=== PATIENT | female | born 1965 | race Caucasian/White ===

== ENCOUNTER 2016-06-16 10:43 | Emergency (ER) | payer OTHER, SELFPAY ==
[2016-06-16] MEDS ORDERED: Ondansetron 4 MG Tab.DIS PO ONE (11:22)
[2016-06-16] MEDS ORDERED: LORazepam 2 MG/ML MDV IM ONE (11:23)
--- NOTE | 2016-06-16 11:31 | EDM.PDOC ---
ED HPI - General Chief Complaint: Gastrointestinal Problem Stated Complaint: GASTROINTESTINAL ISSUES Time Seen by Provider: 06/16/16 11:25 Source of Information: Reports: Patient History Limitations: Reports: No limitations - History of Present Illness INITIAL COMMENTS - FREE TEXT/NARRATIVE: patient reports with complaints of worsening abdominal discomfort. She states started 2 weeks ago, became significantly worse this morning. Symptoms not precipitated by any known event. she has decreased dietary intake and reports last normal BM was nearly a week ago. She did just recently see her PCP this past saturday, was told she has low platelets and was told to f/u with hematology, but reports was not having significant abdominal discomfort at that time. She has known history of fatty liver disease, does report regular use of alcohol, although has been advised to quit. She was recently started on lexapro this past saturday for anxiety and depression. She reports nausea, but no vomiting, just dry heaves. She denies any abdominal 'pain', just reports a discomfort and fullness to her abdomen. She denies any chest pain or shortness of breath. She feels chilled and feels as though her heart is racing. Last alcohol use was last night. Other than past history of a csection, she has no past history of abdominal surgery. She denies any alleviating or provoking factors or radiation of abdominal discomfort. She does report feeling that her ' heart is pounding', which typically happens, and resolves with alcohol use. Symptom Onset Date: 06/02/16 Location, : Reports: abdomen Quality: Reports: ache Improves with: Reports: None Worsens with: Reports: None - Related Data Allergies/ADRs: Allergies Allergy/AdvReac Type Severity Reaction Status Date / Time cephalexin Allergy Hives Verified 11/23/15 13:34 Sulfa (Sulfonamide Allergy Hives Verified 11/23/15 13:34 Antibiotics) doxycycline AdvReac Nausea and Verified 11/24/15 07:53 Vomiting Home Meds: Home Meds Multivitamin [Multivitamins] 1 tab PO DAILY 02/16/15 [History] Ondansetron [Zofran ODT] 4 mg PO Q6H PRN #10 tab.dis 02/16/15 [Rx] Ranitidine HCl 75 mg PO DAILY PRN 02/16/15 [History] Hydrocodone/Acetaminophen [Hydrocodon-Acetaminophen 5-325] 1 tab PO ASDIRECTED PRN 11/23/15 [History] Potassium Gluconate [Potassium] 550 mg PO DAILY 06/16/16 [History] Past Medical History Gastrointestinal History: Reports: GERD Other Gastrointestinal History: "fatty liver" Other Genitourinary History: "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" Musculoskeletal History: Reports: Back pain, chronic Psychiatric History: Reports: Anxiety Endocrine/Metabolic History: Reports: None - Past Surgical History HEENT Surgical History: Reports: Adenoidectomy, Tonsillectomy Female Surgical History: Reports: section Social & Family History - Tobacco Use Smoking Status *Q: Current Every Day Smoker Years of Tobacco use: 37 Packs/Tins Daily: 0.5 Second Hand Smoke Exposure: Yes - Caffeine Use Caffeine Use: Reports: Coffee - Alcohol Use Days Per Week of Alcohol Use: 7 Number of Drinks Per Day: 7 Total Drinks Per Week: 49 - Recreational Drug Use Recreational Drug Use: No Drug Use in Last 12 Months: No ED ROS GENERAL - Review of Systems Review Of Systems: See Below Constitutional: Reports: chills, decreased appetite. Denies: fever Respiratory: Denies: shortness of breath (patient denies any shortness of breath , but states she has increase abdominal discomfort with deep inspirations) Cardiovascular: Denies: Chest pain, Edema, Lightheadedness, Palpitations GI/Abdominal: Reports: Abdominal pain (reports she has increased abdominal pressure, diffuse. ), Constipation (reports she has had passing of small amounts of stool, but last 'good' BM was over a weeka go), Decreased appetite, Nausea. Denies: Diarrhea, Vomiting (reports dry heaving) : Denies: dysuria, flank pain, frequency, hematuria Neurological: Denies: dizziness, headache Psychiatric: Reports: Anxiety (patient was just started on lexapro this past saturday), Depression ED EXAM - Physical Exam Exam: See Below Exam Limited By: No limitations General Appearance: alert, WD/WN, anxious, mild distress. No: no apparent distress (patient appears mildly anxious and uncomfortable) Respiratory/Chest: no respiratory distress, lungs clear, normal breath sounds, chest non-tender. No: rales, rhonchi, wheezing Cardiovascular: normal peripheral pulses, regular rate, rhythm, no murmur GI/Abdominal: soft, non tender, no distention. No: normal bowel sounds ( decreased bowel sounds in all four quadrants), guarding, rebound Neurological: alert, oriented, normal cognition Psychiatric: normal affect, anxious Skin Exam: Warm, Dry, Normal color Course - Vital Signs Text/Narrative:: 1214 Patient reports despite zofran and ativan, she feels about the same. She feels as though her heart is racing, denies any chest pain. Will obtain and EKG to evaluate. She is resting comfortably, lab work is pending. 1310 Discussed findings with patient, labwork including WBC is normal, platelets are low at 135k, RBC, HG/HCT are normal. CMP shows slightly low K+, otherwise normal , CRP, Amylase normal, UA normal. Discussed recommendations for bowel clean out at home, vs options for enema in clinic, patient prefers to go home with recommendations for bowel clean out. Last Recorded V/S: Last Vital Signs Temp 98.4 F 06/16/16 10:54 Pulse 94 06/16/16 10:54 Resp 20 06/16/16 10:54 BP 159/92 H 06/16/16 10:54 Pulse Ox 98 06/16/16 10:54 - Orders/Labs/Meds Orders: Active Orders 24 hr Category Date Time Status EKG 12 Lead [EKG Documentation Completion] [RC] Care 06/16/16 12:18 Active ASDIRECTED Abdomen 2V AP Flat Upright [CR] Stat Exams 06/16/16 11:20 Taken Labs: Laboratory Tests 06/16/16 06/16/16 06/16/16 Range/Units 11:45 11:51 11:51 WBC 6.28 (3.98-10.04) K/mm3 RBC 4.50 (3.98-5.22) M/mm3 Hgb 14.9 (11.2-15.7) gm/L Hct 43.4 (34.1-44.9) % MCV 96.4 H (79.4-94.8) fl MCH 33.1 H (25.6-32.2) pg MCHC 34.3 (32.2-35.5) g/dl RDW Std Deviation 44.0 (36.4-46.3) fL Plt Count 135 L (182-369) K/mm3 MPV 11.3 (9.4-12.3) fl Neut % (Auto) 65.0 (34.0-71.1) % Lymph % (Auto) 24.0 (19.3-51.7) % [place] % (Auto) 10.0 (4.7-12.5) % Eos % (Auto) 0.3 L (0.7-5.8) Baso % (Auto) 0.5 (0.1-1.2) % Neut # 4.08 (1.56-6.13) K/mm3 Lymph # 1.51 (1.18-3.74) K/mm3 [place] # 0.63 H (0.24-0.36) K/mm3 Eos # 0.02 L (0.04-0.36) K/mm3 Baso # 0.03 (0.01-0.08) K/mm3 Sodium 144 (136-145) mEq/L Potassium 3.4 L (3.5-5.1) mEq/L Chloride 105 (98-107) mEq/L Carbon Dioxide 24 (21-32) mEq/L Anion Gap 18.4 H (5-15) BUN 3 L (7-18) mg/dL Creatinine 0.7 (0.55-1.02) mg/dL Est Cr Clr Drug Dosing 81.18 mL/min Estimated GFR (MDRD) > 60 (>60) mL/min BUN/Creatinine Ratio 4.3 L (14-18) Glucose 117 H (74-106) mg/dL Calcium 8.9 (8.5-10.1) mg/dL Total Bilirubin 0.9 (0.2-1.0) mg/dL AST 133 H (15-37) U/L ALT 64 H (14-59) U/L Alkaline Phosphatase 128 H (46-116) U/L C-Reactive Protein < 0.2 (<1.0) mg/dL Total Protein 7.9 (6.4-8.2) g/dl Albumin 3.7 (3.4-5.0) g/dl Globulin 4.2 gm/dL Albumin/Globulin Ratio 0.9 L (1-2) Amylase 96 (25-115) U/L Urine Color Yellow (Yellow) Urine Appearance Clear (Clear) Urine pH 6.0 (5.0-8.0) Ur Specific [place] 1.025 (1.005-1.030) Urine Protein Negative (Negative) Urine Glucose (UA) Negative (Negative) Urine Ketones Trace H (Negative) Urine Occult Blood Negative (Negative) Urine Nitrite Negative (Negative) Urine Bilirubin Negative (Negative) Urine Urobilinogen 1.0 (0.2-1.0) Ur Leukocyte Esterase Negative (Negative) Urine RBC Not seen (0-5) /hpf Urine WBC 0-5 (0-5) /hpf Ur Epithelial Cells 0-5 (0-5) /hpf Urine Bacteria Few (FEW) /hpf Urine Mucus Many H (FEW) /hpf Meds: Medications Discontinued Medications Generic Name Dose Route Start Last Admin Trade Name Francisco PRN Reason Stop Dose Admin Lorazepam 1 mg 06/16/16 11:23 06/16/16 11:45 Ativan IM 06/16/16 11:24 1 mg ONETIME ONE Administration Ondansetron HCl 8 mg 06/16/16 11:22 06/16/16 11:44 Zofran Odt PO 06/16/16 11:23 8 mg ONETIME ONE Administration Departure - Departure Time of Disposition: 13:12 Disposition: Home, Self-Care 01 Condition: good Clinical Impression: Constipation, Anxiety Instructions: Constipation, Adult Referrals: Mone Pearl NP [Primary Care Provider] - Forms: ED Department Discharge Additional Instructions: patient presents with nausea, vomiting, and overall not 'feeling well'. Symptoms have been present x 2 weeks, she denies any provoking or alleviating factors. She does drink alcohol regularly, has been advised to quit, but states she is not sure if she is read. She was recently diagnosed with low platelets, with recommendation and pending f/u with hematology. She has not had a regular BM in nearly a week. She does reports sensation of her heart racing, which is relieved by alcohol consumption. Her last drink was last night. Lab work reveals normal WBC at 6.28, RBC 4.5, Hg 14.9, Hct 43.4, platelets at 135k. Her Potassium is slightly low at 3.4, CRP normal, Amylase 96, AST 133, ALT 64, Alk Phos 128. UA normal without evidence of acute UTI Abdominal xray does not show any evidence of obstruction or air fluid levels. mild to moderate amount of stool present in colon. Radiology report is pending. EKG shows normal sinus rhythm Patient was given zofran, and ativan in ED. Did give recommendations for bowel clean out, including magnesium citrate, miralax, and daily stool softener. Did recommend she follow a bland diet, increase water intake, avoid alcohol. She did just start lexapro, so advised new medication could possibly be contributing to nausea, but typically this resolves after 3-5 days of use. She does have a prescription for zofran, advised to continue as directed PRN. Did caution that medication can worsen constipation, so use only as needed. Did recommend f/u with her PCP if not improving, or certainly return to ED as needed. - My Orders Last 24 Hours: My Active Orders 06/16/16 11:20 Abdomen 2V AP Flat Upright [CR] Stat 06/16/16 12:18 EKG 12 Lead [EKG Documentation Completion] [RC] ASDIRECTED - Assessment/Plan Last 24 Hours: My Active Orders 06/16/16 11:20 Abdomen 2V AP Flat Upright [CR] Stat 06/16/16 12:18 EKG 12 Lead [EKG Documentation Completion] [RC] ASDIRECTED
[2016-06-16 14:40] VITALS: BP 144/74
--- NOTE | 2016-06-18 07:37 | CR ---
Abdomen: Supine and upright views of the abdomen were obtained. Comparison: No previous abdominal plain film, previous abdominal CT of 02/12/11 is available. Mild scoliosis is seen. Bowel gas pattern is normal. Several calcifications are seen within the pelvis which are likely due to phleboliths. No free air is seen. Impression: 1. Nothing acute is seen on two-view abdominal x-ray. Diagnostic code #2
== END 2016-06-16 13:45 | disposition home or self-care (01) ==
LOC: JD.ED 10:43
DX: K59.00 Constipation, unspecified (principal); F41.9 Anxiety disorder, unspecified; F17.210 Nicotine dependence, cigarettes, uncomplicated; Z98.890 Other specified postprocedural states; Z79.899 Other long term (current) drug therapy; Z88.1 Allergy status to other antibiotic agents; Z88.2 Allergy status to sulfonamides
CPT/HCPCS: 36415; 74020; 80053; 81001; 82150; 85025; 86140; 93005; 96372; 99284; A9270; J2060

== ENCOUNTER 2016-11-27 06:27 | Day surgery (SDC) | payer OTHER, SELFPAY ==
--- NOTE | 2016-11-21 12:03 | HP ---
DATE OF ADMISSION: 11/27/2016 HISTORY OF PRESENT ILLNESS: This is the second orthopedic outpatient admission for surgery for this 51-year- old female who is being admitted for removal of hardware from right ankle. The patient had suffered a right ankle fracture and surgery on 11/24/2015. She had been doing quite well over this past year, but was having mechanical pain in and around the hardware fixation sites on both the inside and outside portions of her ankle. She was seen in the Orthopedic Clinic in discussion of removal of hardware. We will go ahead and schedule her to have the hardware removed. The procedure has been outlined to her along with the postoperative recovery phase, and the necessity for limited weightbearing, and she understands that and has consented to surgery. ALLERGIES: To sulfa and cephalexin, developed a rash. CURRENT MEDICATIONS: Ranitidine and she does take a potassium supplement. PAST MEDICAL HISTORY: She notes anxiety. There was a questionable history of blood pressure. She notes no medical changes since her last surgical procedure dating back to 11/2015. PAST SURGICAL HISTORY: Positive, 11/24/2015, right ankle ORIF, had no anesthesia complications; although, she does state she had some nausea and vomiting. Bleeding history is negative. Blood clot history is negative. SOCIAL HISTORY: The patient is a [id number]-per-day smoker. She drinks 6 to 8 beers per day. PHYSICAL EXAMINATION: GENERAL: Today reveals a well-developed and well-nourished 51-year-old female in mild distress. HEAD, EYES, EARS, NOSE, AND THROAT: Normocephalic. NECK: Supple. CHEST: Clear. COR: Regular rate. ABDOMEN: Soft. : Intact. MUSCULOSKELETAL: Examination of the right ankle reveals healed surgical scars on both the medial and lateral malleolus. She has positive tenderness over the screw fixation medial and pin fixation lateral. ASSESSMENT: Status post ORIF of right ankle with hardware. PLAN: Plan is for the patient to undergo removal of hardware and surgery with local and sedation. SON /[id number] HERRERA
[~2016-11-27 06:27] MED LIST: Lactated Ringers 1,000 ML IV SCH; Lidocaine 1%/Sod Bicarbonate in NS 8.4% 1 ML Syringe PRN; Sodium Chloride 0.9% 10 ML Syringe FLUSH PRN
[2016-11-27] MEDS ORDERED: Midazolam 1 MG/ML 2 ML SDV ONE (07:09)
[2016-11-27] MEDS ORDERED: Propofol 200 MG/20 ML SDV ONE (07:09)
[2016-11-27] MEDS ORDERED: fentaNYL 100 MCG/2 ML SDV ONE (07:09)
[2016-11-27] MEDS ORDERED: Lidocaine 1% 30 ML SDV ONE (07:21)
[2016-11-27] MEDS ORDERED: Iodine/Sodium Iodide 2% Tincture 30 ML Bottle ONE (07:21)
--- NOTE | 2016-11-27 07:24 | PCM.PREANE ---
Preanesthetic Assessment - Anesthesia/Transfusion/Family Hx Anesthesia History: Prior Anesthesia Without Reaction Family History of Anesthesia Reaction: No Type of Transfusion Reactions: Reports: Unknown - Review of Systems General: No Symptoms Pulmonary: Other (smoker 1/2 per day) Cardiovascular: Palpitations Gastrointestinal: Other (controlled with meds, flares with spicy foods) Neurological: No Symptoms Other: Reports: Anxiety (ETOH abuse 8beers plus a day, plus liquor as well) - Physical Assessment NPO Status Date: 11/26/16 NPO Status Time: 22:30 Pulse: 94 O2 Sat by Pulse Oximetry: 96 Respiratory Rate: 16 Blood Pressure: 132/65 Temperature: 36.6 C Height: 1.63 m Weight: 60.781 kg ASA Class: 2 Mental Status: Alert & Oriented x3 Airway Class: Mallampati = 2 Dentition: Reports: Normal Dentition Thyro-Mental Finger Breadths: 3 Mouth Opening Finger Breadths: 3 ROM/Head Extension: Full Lungs: Clear to Auscultation, Normal Respiratory Effort Cardiovascular: Regular Rate, Regular Rhythm, Other (EKG show NSR) - Allergies Allergies/Adverse Reactions: Allergies Allergy/AdvReac Type Severity Reaction Status Date / Time cephalexin Allergy Hives Verified 11/26/16 16:07 Sulfa (Sulfonamide Allergy Hives Verified 11/26/16 16:07 Antibiotics) doxycycline AdvReac Nausea and Verified 11/26/16 16:07 Vomiting - Blood Blood Available: No Product(s) Available: None - Anesthesia Plan Pre-Op Medication Ordered: None - Acknowledgements Anesthesia Type Planned: MAC Pt an Appropriate Candidate for the Planned Anesthesia: Yes Alternatives and Risks of Anesthesia Discussed w Pt/Guardian: Yes Pt/Guardian Understands and Agrees with Anesthesia Plan: Yes PreAnesthesia Questionnaire Cardiovascular History: Reports: None Respiratory History: Reports: None Gastrointestinal History: Reports: GERD Other Gastrointestinal History: "fatty liver" Other Genitourinary History: "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" AVID EDITOR History: Reports: None Musculoskeletal History: Reports: Back Pain, Chronic Neurological History: Reports: None Psychiatric History: Reports: Anxiety, Depression Endocrine/Metabolic History: Reports: None Hematologic History: Reports: None Immunologic History: Reports: None Oncologic (Cancer) History: Reports: None Dermatologic History: Reports: None - Past Surgical History Head Surgeries/Procedures: Reports: None HEENT Surgical History: Reports: Adenoidectomy, Tonsillectomy Cardiovascular Surgical History: Reports: None Respiratory Surgical History: Reports: None Female Surgical History: Reports: Section Neurological Surgical History: Reports: None Oncologic Surgical History: Reports: None Dermatological Surgical History: Reports: None - SUBSTANCE USE Smoking Status *Q: Current Every Day Smoker Tobacco Use Within Last Twelve Months: Cigarettes Second Hand Smoke Exposure: Yes Days Per Week of Alcohol Use: 7 Number of Drinks Per Day: 7 Total Drinks Per Week: 49 Recreational Drug Use History: No - HOME MEDS Home Medications: Home Meds Potassium Gluconate 180 mg PO DAILY 11/26/16 [History] Ranitidine [Zantac] 150 mg PO DAILY 11/26/16 [History] - CURRENT (IN HOUSE) MEDS Current Meds: Current Medications Lactated Ringer's (Ringers, Lactated) 1,000 mls @ 125 mls/hr IV ASDIRECTED KENNEDY Stop: 11/27/16 23:00 Lidocaine/Sodium Bicarbonate (Buffered Lidocaine 1% In Ns 8.4%) 0.25 ml .XX ONETIME PRN PRN Reason: Prior to IV Start Stop: 11/27/16 18:00 Sodium Chloride (Saline Flush) 10 ml FLUSH ASDIRECTED PRN PRN Reason: Keep Vein Open Stop: 11/27/16 18:00 Discontinued Medications Fentanyl (Sublimaze) Confirm Administered Dose 100 mcg .ROUTE .STK-MED ONE Stop: 11/27/16 07:10 Midazolam HCl (Versed 1 Mg/Ml) Confirm Administered Dose 2 mg .ROUTE .STK-MED ONE Stop: 11/27/16 07:10 Propofol (Diprivan 20 Ml) Confirm Administered Dose 400 mg .ROUTE .STK-MED ONE Stop: 11/27/16 07:10
[2016-11-27] MEDS ORDERED: Ondansetron 4 MG/2 ML SDV IVPUSH PRN ×2 (07:30→07:43)
[2016-11-27] MEDS ORDERED: fentaNYL 100 MCG/2 ML SDV IVPUSH PRN (07:30)
[2016-11-27] MEDS ORDERED: Ketorolac 15 MG/ML SDV IVPUSH PRN (07:43)
[2016-11-27] MEDS ORDERED: Acetaminophen/oxyCODONE 325-5 MG Tab PO PRN (07:43)
[2016-11-27] MEDS ORDERED: Clindamycin Phosphate 900 MG in Dextrose 5% in Water 100 ML IV ONE ×2 (08:15)
[2016-11-27] MEDS ORDERED: Ondansetron 4 MG/2 ML SDV ONE (08:22)
--- NOTE | 2016-11-27 09:12 | PCM48HPAN ---
Post Anesthesia Note - EVALUATION WITHIN 48HRS OF ANESTHETIC Vital Signs in Normal Range: Yes Patient Participated in Evaluation: Yes Respiratory Function Stable: Yes Airway Patent: Yes Cardiovascular Function Stable: Yes Hydration Status Stable: Yes Pain Control Satisfactory: Yes Nausea and Vomiting Control Satisfactory: Yes Mental Status Recovered: Yes
--- NOTE | 2016-11-27 10:35 | CR ---
Right ankle: Seven fluoroscopic spot views were obtained of the right ankle utilizing C-arm device. Comparison: Previous right ankle study of 06/06/16. Findings: Previous intramedullary venecia within the distal fibula is not seen on current exam. Study also shows removal of screws within the medial malleolus. Fluoroscopy time is given as 8.3 seconds. Impression: 1. Study showing removal of previous hardware within the right ankle. Diagnostic code #2
[2016-11-27 11:08] VITALS: BP 103/65
--- NOTE | 2016-11-27 13:54 | OR ---
DATE OF OPERATION: 11/27/2016 SURGEON: Rick Brooks MD PREOPERATIVE DIAGNOSIS: Status post bimalleolar fracture, right ankle, with Jerez venecia and screw fixation. POSTOPERATIVE DIAGNOSIS: Status post bimalleolar fracture, right ankle, with Jerez venecia and screw fixation. ANESTHESIA: Sedation with local 1% lidocaine. OPERATION PERFORMED: 1. Open removal of Jerez venecia, right fibula of the ankle. 2. Open removal of 2 cortical cannulated screws of medial malleolus right ankle. DESCRIPTION OF PROCEDURE: The patient was taken to the operative room in supine position and was placed under a sedation anesthesia. After sedation, the operation proceeded with prepping and draping of the right lower extremity by standard technique. After prepping and draping, the operation then proceeded with palpation for identification of the Jerez venecia that was in the tip of the fibula laterally. This was identified and fluoroscopy was used for the case. A stab incision of approximately 2 cm in length was placed over the tip of the Jerez venecia area. This was dissected down to deep tissues down to where the Jerez venecia was imbedded in the fibula. This was loosened and removed in a retrograde fashion. The deep tissue was then thoroughly irrigated. The soft tissues were closed with 3-0 Vicryl, and then the skin was closed with 4-0 Prolene. The operation then proceeded to the medial malleolus area, where the 2 screws were identified by fluoroscopy. Then, incisions were placed over the heads of both cannulated screws. Incisions were made with 11 blade. The incision was carried down to the screw level. This bluntly dissected tissues away from the head of the screw. Both screws were removed in a retrograde fashion. Both incisions were thoroughly irrigated. Then, the operation proceeded with closure of the deep tissues with 3-0 Vicryl and skin with 4-0 Prolene. The patient was placed in standard dressings and a soft dressing protection. The fluoroscopy was brought in at the completion the procedure. X-rays were taken, and these were found to be satisfactory. The patient tolerated this procedure well and left the operating room in a stable condition to room for recovery. ESTIMATED BLOOD LOSS: MMODAL /[id number]
== END 2016-11-27 10:45 | disposition home or self-care (01) ==
LOC: JD.SDS 06:27
PROVIDERS: ATTEND Specialist
DX: T84.84XA Pain due to internal orthopedic prosthetic devices, implants and grafts, initial encounter (principal); F41.9 Anxiety disorder, unspecified; F17.210 Nicotine dependence, cigarettes, uncomplicated; K21.9 Gastro-esophageal reflux disease without esophagitis; F32.9 Major depressive disorder, single episode, unspecified; Z88.1 Allergy status to other antibiotic agents; Z88.2 Allergy status to sulfonamides; Z79.899 Other long term (current) drug therapy; Z98.890 Other specified postprocedural states; Z90.89 Acquired absence of other organs
CPT/HCPCS: 20680; 76000; A9270; C1769; J2250; J2405; J3010; J7060; J7120; 01480; J2704

== ENCOUNTER 2016-12-10 12:02 | Emergency (ER) | payer OTHER, SELFPAY ==
[2016-12-10 12:15] VITALS: BP 181/100
[2016-12-10] MEDS ORDERED: Sodium Chloride 0.9% 10 ML Syringe FLUSH PRN (12:44)
[2016-12-10] MEDS ORDERED: Sodium Chloride 0.9% 1,000 ML IV ONE (12:44)
[2016-12-10] MEDS ORDERED: Ondansetron 4 MG/2 ML SDV IVPUSH ONE (12:44)
--- NOTE | 2016-12-10 12:54 | EDM.PDOC ---
ED HPI GENERAL MEDICAL PROBLEM - General Chief Complaint: General Stated Complaint: EAR PAIN/LETHARGY/NO APPETITE Time Seen by Provider: 12/10/16 12:33 Source of Information: Reports: Patient History Limitations: Reports: No Limitations - History of Present Illness INITIAL COMMENTS - FREE TEXT/NARRATIVE: Patient is a 51-year-old female who presents to the ED complaining of nausea, low energy, poor appetite, right ear discomfort, generalized abdominal discomfort, dysuria, anxiety, palpitations, excessive sleeping, and intermittent chest pain with anxiety. Patient states November 27 she had pins removed from the right ankle. Since then patient has been experiencing these above symptoms. Patient states she's been more anxious as of recent. She has anxiety-like symptoms at night and throughout the day. She a alcoholic and drinks alcohol every day. In addition she utilizes marijuana on intermittent basis. She has a pressure-like sensation to her stomach with the sensation she has to have a bowel movement. She has intermittent pain with urination. She is concerned that she may have low potassium. She's had this in the past. She has taken Lexapro and Zoloft in the past for anxiety/depression but discontinued due to irritation to her stomach. She denies any acid reflux. States her abdomen is queasy. Currently does not want help for alcoholism but notes she has to stop. States she's been changing the dressing to the right ankle every night. Last night there was no signs of infection present. Pain is minimal. She does not see a provider unrelated basis. She does not have insurance. Currently patient denies any chest pain, short of breath, dizziness, palpitations, or any additional complaints. - Related Data Allergies Allergy/AdvReac Type Severity Reaction Status Date / Time cephalexin Allergy Hives Verified 11/26/16 16:07 Sulfa (Sulfonamide Allergy Hives Verified 11/26/16 16:07 Antibiotics) doxycycline AdvReac Nausea and Verified 11/26/16 16:07 Vomiting Home Meds: Home Meds Potassium Gluconate 180 mg PO DAILY 11/26/16 [History] Ranitidine [Zantac] 150 mg PO DAILY PRN 11/26/16 [History] Magnesium Oxide 400 mg PO BID #60 tablet 12/10/16 [Rx] Ondansetron [Zofran ODT] 4 mg PO Q6H PRN #20 tab.dis 12/10/16 [Rx] Propranolol HCl [Inderal LA] 60 mg PO QAM #15 cap.sa.24h 12/10/16 [Rx] chlordiazePOXIDE [Librium] 25 mg PO ASDIRECTED #18 cap 12/10/16 [Rx] Past Medical History Cardiovascular History: Reports: None Respiratory History: Reports: None Gastrointestinal History: Reports: GERD Other Gastrointestinal History: "fatty liver" Other Genitourinary History: "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" 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: 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 Musculoskeletal History: Reports: Back Pain, Chronic Neurological History: Reports: None Psychiatric History: Reports: Anxiety, Depression Endocrine/Metabolic History: Reports: None Hematologic History: Reports: None Immunologic History: Reports: None Oncologic (Cancer) History: Reports: None Dermatologic History: Reports: None - Past Surgical History Head Surgeries/Procedures: Reports: None HEENT Surgical History: Reports: Adenoidectomy, Tonsillectomy Cardiovascular Surgical History: Reports: None Respiratory Surgical History: Reports: None Female Surgical History: Reports: Section Neurological Surgical History: Reports: None Oncologic Surgical History: Reports: None Dermatological Surgical History: Reports: None Social & Family History - Tobacco Use Smoking Status *Q: Current Every Day Smoker Years of Tobacco use: 30 Packs/Tins Daily: 1 Second Hand Smoke Exposure: Yes - Caffeine Use Caffeine Use: Reports: Coffee - Alcohol Use Days Per Week of Alcohol Use: 7 Number of Drinks Per Day: 7 Total Drinks Per Week: 49 - Recreational Drug Use Recreational Drug Use: Yes Drug Use in Last 12 Months: Yes Recreational Drug Type: Reports: Marijuana/Hashish Recreational Drug Use Frequency: Weekly ED ROS GENERAL - Review of Systems Review Of Systems: See Below Constitutional: Reports: Malaise, Decreased Appetite. Denies: Fever, Chills HEENT: Reports: No Symptoms Respiratory: Denies: Shortness of Breath, Cough, Sputum Cardiovascular: Reports: Chest Pain (Intermittent with anxiety attack), Palpitations. Denies: Dyspnea on Exertion GI/Abdominal: Reports: Abdominal Pain, Constipation, Nausea. Denies: Black Stool, Bloody Stool, Diarrhea, Decreased Appetite, Distension, Flatus, Hematemesis, Hematochezia, Vomiting : Reports: Dysuria. Denies: Discharge, Frequency, Urgency, Urinary Retention Musculoskeletal: Reports: No Symptoms Neurological: Denies: Headache Psychiatric: Reports: Anxiety, Cravings (Alcohol), Depression. Denies: Hallucinations, Homicidal Ideation, Suicidal Ideation ED EXAM, GENERAL - Physical Exam Exam: See Below Exam Limited By: No Limitations General Appearance: Alert, WD/WN, No Apparent Distress Eye Exam: Bilateral Eye: EOMI, PERRL Ears: Normal External Exam, Normal Canal, Hearing Grossly Normal, Normal TMs Nose: Normal Inspection Throat/Mouth: Normal Voice, No Airway Compromise Neck: Normal Inspection, Supple, Non-Tender Respiratory/Chest: No Respiratory Distress, Lungs Clear, Normal Breath Sounds, Chest Non-Tender Cardiovascular: Normal Peripheral Pulses, Regular Rate, Rhythm, No Murmur Peripheral Pulses: 2+: Radial (R) GI/Abdominal: Soft, No Organomegaly, No Distention, Tender (Generalized), Abnormal Bowel Sounds (Hyperactive) Back Exam: Normal Inspection Extremities: No Pedal Edema, Normal Capillary Refill, Other (Dressing with splint to the right ankle. Patient has a surgical incision with approximately 15 sutures with no signs of infection.) Neurological: Alert, Oriented, CN II-XII Intact, Normal Cognition, No Motor/ Sensory Deficits Psychiatric: Depressed Mood, Flat Affect, Tearful Skin Exam: Warm, Dry, Intact, Normal Color Course - Vital Signs Last Recorded V/S: Last Vital Signs Temp 98.5 F 12/10/16 12:10 Pulse 107 H 12/10/16 12:10 Resp 18 12/10/16 12:10 BP 181/100 H 12/10/16 12:10 Pulse Ox 100 12/10/16 12:10 - Orders/Labs/Meds Orders: Active Orders 24 hr Category Date Time Status EKG Documentation Completion [RC] STAT Care 12/10/16 12:44 Active Peripheral IV Care [RC] . DIRECTED Care 12/10/16 12:44 Active Peripheral IV Insertion Adult [OM.PC] Stat Oth 12/10/16 12:44 Ordered Labs: Laboratory Tests 12/10/16 12/10/16 12/10/16 Range/Units 13:00 13:00 13:00 WBC 5.09 (3.98-10.04) K/mm3 RBC 4.01 (3.98-5.22) M/mm3 Hgb 13.5 (11.2-15.7) gm/L Hct 39.1 (34.1-44.9) % MCV 97.5 H (79.4-94.8) fl MCH 33.7 H (25.6-32.2) pg MCHC 34.5 (32.2-35.5) g/dl RDW Std Deviation 48.2 H (36.4-46.3) fL Plt Count 96 L (182-369) K/mm3 MPV 12.0 (9.4-12.3) fl Neut % (Auto) 59.9 (34.0-71.1) % Lymph % (Auto) 29.5 (19.3-51.7) % Boyle % (Auto) 9.2 (4.7-12.5) % Eos % (Auto) 0.6 L (0.7-5.8) Baso % (Auto) 0.6 (0.1-1.2) % Neut # (Auto) 3.05 (1.56-6.13) K/mm3 Lymph # (Auto) 1.50 (1.18-3.74) K/mm3 Boyle # (Auto) 0.47 H (0.24-0.36) K/mm3 Eos # (Auto) 0.03 L (0.04-0.36) K/mm3 Baso # (Auto) 0.03 (0.01-0.08) K/mm3 Manual Slide Review Abnormal smear PT 13.7 H (8.0-13.0) SECONDS INR 1.24 Sodium 144 (136-145) mEq/L Potassium 3.2 L (3.5-5.1) mEq/L Chloride 107 (98-107) mEq/L Carbon Dioxide 22 (21-32) mEq/L Anion Gap 18.2 H (5-15) BUN 4 L (7-18) mg/dL Creatinine 0.7 (0.55-1.02) mg/dL Est Cr Clr Drug Dosing 80.26 mL/min Estimated GFR (MDRD) > 60 (>60) mL/min BUN/Creatinine Ratio 5.7 L (14-18) Glucose 157 H (74-106) mg/dL Calcium 9.3 (8.5-10.1) mg/dL Magnesium (1.8-2.4) mg/dl Total Bilirubin 1.1 H (0.2-1.0) mg/dL AST 207 H (15-37) U/L ALT 89 H (14-59) U/L Alkaline Phosphatase 176 H (46-116) U/L Troponin I < 0.017 (0.00-0.056) ng/mL Total Protein 8.3 H (6.4-8.2) g/dl Albumin 3.6 (3.4-5.0) g/dl Globulin 4.7 gm/dL Albumin/Globulin Ratio 0.8 L (1-2) Lipase 264 (73-393) U/L TSH 3rd Generation 1.940 (0.358-3.74) uIU/mL Urine Color (Yellow) Urine Appearance (Clear) Urine pH (5.0-8.0) Ur Specific Cayce (1.005-1.030) Urine Protein (Negative) Urine Glucose (UA) (Negative) Urine Ketones (Negative) Urine Occult Blood (Negative) Urine Nitrite (Negative) Urine Bilirubin (Negative) Urine Urobilinogen (0.2-1.0) Ur Leukocyte Esterase (Negative) Urine RBC (0-5) /hpf Urine WBC (0-5) /hpf Ur Epithelial Cells (0-5) /hpf Urine Bacteria (FEW) /hpf Hyaline Casts (0-5) /lpf Urine Mucus (FEW) /hpf Urine Opiates Screen (NEGATIVE) Ur Buprenorphine Scrn (NEGATIVE) Ur Oxycodone Screen (NEGATIVE) Urine Methadone Screen (NEGATIVE) Ur Propoxyphene Screen (NEGATIVE) Ur Barbiturates Screen (NEGATIVE) Ur Tricyclics Screen (NEGATIVE) Ur Phencyclidine Scrn (NEGATIVE) Ur Amphetamine Screen (NEGATIVE) U Methamphetamines Scrn (NEGATIVE) U Benzodiazepines Scrn (NEGATIVE) U Cocaine Metab Screen (NEGATIVE) U Marijuana (THC) Screen (NEGATIVE) Ethyl Alcohol 0.03 (0.00) gm% 12/10/16 12/10/16 12/10/16 Range/Units 13:00 13:55 13:55 WBC (3.98-10.04) K/mm3 RBC (3.98-5.22) M/mm3 Hgb (11.2-15.7) gm/L Hct (34.1-44.9) % MCV (79.4-94.8) fl MCH (25.6-32.2) pg MCHC (32.2-35.5) g/dl RDW Std Deviation (36.4-46.3) fL Plt Count (182-369) K/mm3 MPV (9.4-12.3) fl Neut % (Auto) (34.0-71.1) % Lymph % (Auto) (19.3-51.7) % Boyle % (Auto) (4.7-12.5) % Eos % (Auto) (0.7-5.8) Baso % (Auto) (0.1-1.2) % Neut # (Auto) (1.56-6.13) K/mm3 Lymph # (Auto) (1.18-3.74) K/mm3 Boyle # (Auto) (0.24-0.36) K/mm3 Eos # (Auto) (0.04-0.36) K/mm3 Baso # (Auto) (0.01-0.08) K/mm3 Manual Slide Review PT (8.0-13.0) SECONDS INR Sodium (136-145) mEq/L Potassium (3.5-5.1) mEq/L Chloride (98-107) mEq/L Carbon Dioxide (21-32) mEq/L Anion Gap (5-15) BUN (7-18) mg/dL Creatinine (0.55-1.02) mg/dL Est Cr Clr Drug Dosing mL/min Estimated GFR (MDRD) (>60) mL/min BUN/Creatinine Ratio (14-18) Glucose (74-106) mg/dL Calcium (8.5-10.1) mg/dL Magnesium 1.3 L (1.8-2.4) mg/dl Total Bilirubin (0.2-1.0) mg/dL AST (15-37) U/L ALT (14-59) U/L Alkaline Phosphatase (46-116) U/L Troponin I (0.00-0.056) ng/mL Total Protein (6.4-8.2) g/dl Albumin (3.4-5.0) g/dl Globulin gm/dL Albumin/Globulin Ratio (1-2) Lipase (73-393) U/L TSH 3rd Generation (0.358-3.74) uIU/mL Urine Color Yellow (Yellow) Urine Appearance Clear (Clear) Urine pH 6.5 (5.0-8.0) Ur Specific Cay[place] 1.020 (1.005-1.030) Urine Protein Negative (Negative) Urine Glucose (UA) Negative (Negative) Urine Ketones Negative (Negative) Urine Occult Blood Negative (Negative) Urine Nitrite Negative (Negative) Urine Bilirubin Negative (Negative) Urine Urobilinogen 1.0 (0.2-1.0) Ur Leukocyte Esterase Negative (Negative) Urine RBC 0-5 (0-5) /hpf Urine WBC 0-5 (0-5) /hpf Ur Epithelial Cells 0-5 (0-5) /hpf Urine Bacteria Many H (FEW) /hpf Hyaline Casts 0-5 (0-5) /lpf Urine Mucus Moderate H (FEW) /hpf Urine Opiates Screen Negative (NEGATIVE) Ur Buprenorphine Scrn Negative (NEGATIVE) Ur Oxycodone Screen Negative (NEGATIVE) Urine Methadone Screen Negative (NEGATIVE) Ur Propoxyphene Screen Negative (NEGATIVE) Ur Barbiturates Screen Negative (NEGATIVE) Ur Tricyclics Screen Negative (NEGATIVE) Ur Phencyclidine Scrn Negative (NEGATIVE) Ur Amphetamine Screen Negative (NEGATIVE) U Methamphetamines Scrn Negative (NEGATIVE) U Benzodiazepines Scrn Negative (NEGATIVE) U Cocaine Metab Screen Negative (NEGATIVE) U Marijuana (THC) Screen Presumptive positive H (NEGATIVE) Ethyl Alcohol (0.00) gm% Meds: Medications Discontinued Medications Generic Name Dose Route Start Last Admin Trade Name Freq PRN Reason Stop Dose Admin Chlordiazepoxide HCl 25 mg 12/10/16 15:08 12/10/16 15:14 Librium PO 12/10/16 15:09 25 mg ONETIME ONE Administration Sodium Chloride 1,000 mls @ 999 mls/hr 12/10/16 12:44 12/10/16 13:04 Normal Saline IV 12/10/16 13:44 999 mls/hr ONETIME ONE Administration Lorazepam 1 mg 12/10/16 14:32 12/10/16 14:59 Ativan IVPUSH 12/10/16 14:33 Not Given ONETIME ONE Lorazepam 1 mg 12/10/16 15:08 12/10/16 15:14 Ativan PO 12/10/16 15:09 1 mg ONETIME ONE Administration Magnesium Oxide 800 mg 12/10/16 15:03 12/10/16 15:14 Magnesium Oxide PO 12/10/16 15:04 800 mg ONETIME ONE Administration Ondansetron HCl 4 mg 12/10/16 12:44 12/10/16 13:03 Zofran IVPUSH 12/10/16 12:45 4 mg ONETIME ONE Administration Propranolol HCl 60 mg 12/10/16 15:08 12/10/16 15:14 Inderal La PO 12/10/16 15:09 60 mg ONETIME ONE Administration Sodium Chloride 10 ml 12/10/16 12:44 12/10/16 13:04 Saline Flush FLUSH 10 ml ASDIRECTED PRN Administration Keep Vein Open - Re-Assessments/Exams Free Text/Narrative Re-Assessment/Exam: Peripheral IV will be established with Zofran 4 mg IVP, and also normal saline. Initial labs and studies include: CBC, chem 14, urine drug tox, serum EtOH, PTT/ INR, lipase, troponin, TSH, UA, chest x-ray one view, abdominal x-ray two-view, and EKG.. EKG sinus rhythm at a rate of [address] changes noted. Chest x-ray and abdomen series: No acute abnormalities noted. Labs reviewed:White blood cell count is normal. Hemoglobin within normal to 13.5. Platelet count is mildly low at 96. Sodium 144. Potassium mildly low at 3.2. AG is 18.2. Creatinine 0.7. Glucose 157. AST 207, AST 89, alk phosphatase is 176. Troponin level is 0.017. Lipase 264. TSH is 1.940. EtOH is 0.03. UA and drug tox screen is pending. 12/10/16 14:32 Reassessment, patient feeling anxious. Ordered 1 mg Ativan IVP. Patient has no pain. Discussed LFT's. She has been diagnosed with fatty liver disease. 1438: Called Dr. Kraus to discuss treatment plan. 1450: Spoke with Dr. Kraus. Suggested patient be started on Remeron 30 mg at night and Inderal 60 mg long-acting. Definitively patient needs to stop consuming alcohol and utilization of marijuana. These are both central nervous system depressants. What we are starting is only a Band-Aid fix. Right ankle bandage removed: 12/10/16 15:[address] Kraus with patient. Patient refuses to take any medications for depression and anxiety. She will take magnesium replacement. She already take potassium replacement at home. She cannot afford to be admitted to the hospital for detox and does not want to have inpatient treatment at [facility]. She will not go to [facility] for treatment. Ordered magnesium 800mg PO. Will discharge patient home with instructions as documented. 12/10/16 15:09 Patient is becoming anxious. Ordered ativan 1mg PO, inderal 60mg LA, and librium 25mg PO. Vitals are stable. Patient discharged home with instructions as documented. Departure - Departure Time of Disposition: 15:07 Disposition: Home, Self-Care 01 Condition: Good Clinical Impression: Alcoholism /alcohol abuse, Anxiety and depression, Palpitations, Hypomagnesemia , Hypokalemia - Discharge Information Prescriptions: chlordiazePOXIDE [Librium] 25 mg PO ASDIRECTED #18 cap Magnesium Oxide 400 mg PO BID #60 tablet Ondansetron [Zofran ODT] 4 mg PO Q6H PRN #20 tab.dis PRN Reason: Nausea Propranolol HCl [Inderal LA] 60 mg PO QAM #15 cap.sa.24h Instructions: Alcohol Use Disorder, Palpitations, [id number] Referrals: PCP,None [Primary Care Provider] - Jeferson Kraus MD [Physician] - Ricarda Ruiz NP [Nurse Practitioner] - Cuong Pablo LAC [Licensed Counselor] - [facility] [Outside] Forms: ED Department Discharge Additional Instructions: As discussed will have you take Librium 25 mg 3 times a day for 3 days, 25 mg twice a day for 3 days, and 25 mg at night for 3 days. Take the Inderal 60 mg daily. Utilize Zofran 4 mg ODT as needed for nausea/vomiting. Take the magnesium replacement 400 mg twice a day every day. Continue taking the potassium supplementation as prescribed. Eat a well-balanced diet. Push the fluids. Do not consume alcohol while taking the Librium. Follow-up with PCP this coming week for reevaluation. Seek help for alcohol dependence, anxiety, and dependence. Return to the ED as needed for any new or worsening symptoms. - My Orders Last 24 Hours: My Active Orders 12/10/16 12:44 EKG Documentation Completion [RC] STAT Peripheral IV Care [RC] . DIRECTED Peripheral IV Insertion Adult [OM.PC] Stat - Assessment/Plan Last 24 Hours: My Active Orders 12/10/16 12:44 EKG Documentation Completion [RC] STAT Peripheral IV Care [RC] . DIRECTED Peripheral IV Insertion Adult [OM.PC] Stat
--- NOTE | 2016-12-10 13:27 | CR ---
Abdominal series: Supine and upright views of the abdomen were obtained as well as frontal view of the chest. Comparison: Previous abdominal x-ray of 06/16/16 and chest x-ray of 02/11/11. Heart size and mediastinum are normal. Lungs are clear. Bony structures are unremarkable. Minimal scoliosis is noted. Bowel gas pattern is normal. Impression: 1. Nothing acute is seen on abdominal series Diagnostic code #2
[2016-12-10] MEDS ORDERED: LORazepam 2 MG/ML MDV IVPUSH ONE (14:32)
[2016-12-10] MEDS ORDERED: Magnesium Oxide 400 MG Tab PO ONE (15:03)
[2016-12-10] MEDS ORDERED: LORazepam 1 MG Tab PO ONE (15:08)
[2016-12-10] MEDS ORDERED: chlordiazePOXIDE 25 MG Cap PO ONE (15:08)
[2016-12-10] MEDS ORDERED: Propranolol 60 MG Cap.ER PO ONE (15:08)
== END 2016-12-10 15:30 | disposition home or self-care (01) ==
LOC: JD.ED 12:02
DX: F41.8 Other specified anxiety disorders (principal); F10.20 Alcohol dependence, uncomplicated; E83.42 Hypomagnesemia; E87.6 Hypokalemia; F17.210 Nicotine dependence, cigarettes, uncomplicated; Z88.1 Allergy status to other antibiotic agents; Z88.2 Allergy status to sulfonamides; Z79.899 Other long term (current) drug therapy; K21.9 Gastro-esophageal reflux disease without esophagitis; Z98.890 Other specified postprocedural states
CPT/HCPCS: 36415; 74022; 80053; 80306; 81001; 83690; 83735; 84443; 84484; 85025; 85610; 93005; 96361; 96374; 99284; A9270; G0480; J2405; J7040; J7050

== ENCOUNTER 2020-10-31 08:57 | Emergency (ER) | payer OTHER, SELFPAY ==
[2020-10-31 09:15] VITALS: BP 115/64; PULSE 83
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
--- NOTE | 2020-10-31 10:12 | CR ---
Chest: Portable view of the chest was obtained. Comparison: Prior chest x-ray of 02/11/11. Heart size and mediastinum are within normal limits. Nodular density is noted within the right lung base. Lungs otherwise are clear. Nothing acute is seen within the visualized osseous structures. Impression: 1. Nodule within the right lung base. Uncertain if this is due to nipple density or actual parenchymal nodule. Please consider nipple marker and repeat chest x-ray. 2. Nothing acute is otherwise seen. Diagnostic code #3
--- NOTE | 2020-10-31 10:48 | US ---
Left lower extremity deep venous ultrasound: Duplex and color Doppler evaluation was obtained of the left common femoral, proximal greater saphenous, superficial femoral, popliteal, posterior tibial and peroneal veins. Right common femoral vein was also evaluated. Comparison: No prior venous imaging is available. Findings: Normal phasic flow, augmentation and compression is seen. Impression: 1. No findings of deep venous thrombosis with left lower extremity or within the right common femoral vein. Diagnostic code #1
[2020-10-31] MEDS ORDERED: Sodium Chloride 0.9% 10 ML Syringe FLUSH PRN ×2 (11:21→12:03)
[2020-10-31] MEDS ORDERED: Iopamidol 612 MG/ML 100 ML Bottle IVPUSH ONE (11:21)
[2020-10-31] MEDS ORDERED: Iopamidol 755 Mg/ML 100 ML Bottle IVPUSH ONE (12:03)
[2020-10-31] MEDS ORDERED: Sodium Chloride 0.9% 100 ML IV SCH (12:15)
--- NOTE | 2020-10-31 12:23 | CT ---
CT chest Technique: Multiple axial sections through the chest were obtained. Intravenous contrast was utilized. Study was performed as a pulmonary angiogram protocol. Comparison: Prior chest x-ray performed earlier on the same day (9:47 AM). Findings: Thoracic aorta shows no aneurysm. Pulmonary arteries show no filling defects to indicate pulmonary embolism. Mediastinum shows no adenopathy. No axillary adenopathy is seen. No pericardial thickening is seen. Small portion of the visualized upper abdominal structures show nothing acute. Lung window settings were reviewed which show a small pleural-based nodule within the right lung base measuring 7 mm. Lungs otherwise are clear. No additional nodule is seen. No pleural effusions or pneumothorax is seen. Bone window settings were reviewed which show minimal degenerative change within the thoracic spine. No acute osseous abnormality is appreciated. Impression: 1. No findings of pulmonary embolism. 2. 7 mm pleural-based nodule within the right lung base which most likely correlates to the finding on plain film study. This nodule is most likely benign but recommend follow-up chest CT study in 6 months to confirm continued stability. This follow-up exam would occur in April,. 3. Nothing acute is otherwise appreciated on CT study of the chest. Diagnostic code #9
--- NOTE | 2020-10-31 13:00 | CT ---
CT abdomen and pelvis Technique: Multiple axial sections were obtained from above the dome of the diaphragm inferiorly through the pubic symphysis. Intravenous contrast was not utilized. Reconstructed coronal and sagittal images were obtained. Additional reconstructed axial images were obtained through the bladder. Comparison: Prior CT abdomen of 02/12/11. Findings: Low density nodule which appears solid is seen next to the inferior vena cava measuring about 1.4 cm. Small nodule measuring about 5 mm within the left lobe. Small nodule is noted within the right lobe measuring 8 mm. These nodules are an interval change from prior exam. Difficult to exclude metastatic lesions. Spleen size is normal. Adrenal glands show no discrete nodule. Pancreas shows no abnormality. Adrenal glands show no nodules. Kidneys show symmetric contrast enhancement. Multiple small low-density nodules are seen within both kidneys with largest measuring 1.2 cm in size which most likely represents multiple small cysts. Abdominal aorta shows atherosclerotic calcification which continues into the iliac vessels with no aneurysm. There is slight increased density being seen within the retroperitoneum and central mesentery. Slight lymph nodes are seen within this area. These findings are felt to be fairly stable from prior CT exam. Appendix is seen which is normal in size. Minimal free fluid is seen within the cul-de-sac. No bowel dilatation is seen. No pelvic mass or adenopathy is seen. Delayed images show contrast within the distal ureters and within the bladder. Bone window settings were reviewed. Slight vacuum phenomena is seen within the L5-S1 disc. No other acute osseous abnormality is appreciated. Impression: 1. Inflammatory type change within the retroperitoneum with several slightly enlarged lymph nodes. 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 2. Several solid nodules within the liver, difficult to completely exclude early metastatic disease. 3. Cysts within the kidneys. 4. Slight free fluid within the pelvis which is nonspecific but likely incidental. No acute abnormality is otherwise seen on CT study of the abdomen and pelvis. Note: If no earlier intervention is wished by the patient, recommend repeat CT study to include the abdomen and repeat study in April,. Diagnostic code #9
--- NOTE | 2020-10-31 14:09 | CT ---
CT left femur/thigh Technique: Multiple axial sections through the left femur and thigh were obtained. Reconstructed coronal and sagittal images were obtained. Intravenous contrast was utilized. Comparison: No previous upper leg imaging is available. Findings: Scattered nonspecific subcutaneous edema is seen within the left thigh along the mostly medial aspect. Skin thickening is also noted. No abnormal enhancement is seen within the muscles of the thigh. Bone window settings were reviewed which show no acute fracture within the femur Impression: 1. Nonspecific subcutaneous edema within the left thigh and skin mostly along the medial aspect. 2. No additional abnormality is appreciated on CT study of the left thigh/femur. 3. If further evaluation of the soft tissues is needed, MRI would be helpful. Diagnostic code #2 MTDD
[2020-10-31] MEDS ORDERED: Furosemide 40 MG Tab PO ONE (14:37)
== END 2020-10-31 15:20 | disposition home or self-care (01) ==
LOC: JD.ED 08:57
DX: K70.31 Alcoholic cirrhosis of liver with ascites (principal); R60.0 Localized edema; R91.8 Other nonspecific abnormal finding of lung field; Z88.1 Allergy status to other antibiotic agents; Z88.2 Allergy status to sulfonamides; Z72.0 Tobacco use
CPT/HCPCS: 36415; 71045; 71275; 73701; 74177; 80053; 80307; 82977; 83690; 83735; 85025; 85379; 85610; 85730; 86140; 93005; 93971; 99284; Q9967; 93010

== ENCOUNTER 2021-01-04 10:58 | Day surgery (SDC) | payer SELFPAY ==
[~2021-01-04 10:58] MED LIST changes: +Lidocaine 1%/Sod Bicarbonate in NS 8.4% 1 ML Syringe IDERM PRN; -Lidocaine 1%/Sod Bicarbonate in NS 8.4% 1 ML Syringe PRN
--- NOTE | 2021-01-04 11:36 | PCM.PREANE ---
Preanesthetic Assessment - Procedure Proposed Procedure: EGD and colonoscopy - Anesthesia/Transfusion/Family Hx Anesthesia History: Prior Anesthesia Without Reaction Type of Anesthesia Reaction: Excessive Nausea/Vomiting Family History of Anesthesia Reaction: No (unsure on family history) Transfusion History: No Prior Transfusion(s) Type of Transfusion Reactions: Reports: Unknown Intubation History: Unknown - Review of Systems General: No Symptoms Pulmonary: Shortness of Breath (with panic attacks= had one last night "scared about coming here" ) Cardiovascular: No Symptoms Gastrointestinal: No Symptoms, Other (last ETOH drink Tuesday 01/02, gerd occassionally, non currently) Neurological: Headache (this morning , not typically "im tired from not sleeping" ) Other: Reports: Easy Bleeding, Easy Bruising, Depression, Anxiety - Physical Assessment NPO Status Date: 01/03/21 NPO Status Time: 04:00 Vital Signs: Last Vital Signs Temp 37.3 C 01/04/21 11:00 Pulse 71 01/04/21 11:00 Resp 18 01/04/21 11:00 BP 152/84 H 01/04/21 11:00 Pulse Ox 97 01/04/21 11:00 Height: 1.63 m Weight: 53 kg ASA Class: 3 Mental Status: Alert & Oriented x3 Airway Class: Mallampati = 2 Dentition: Reports: Normal Dentition, Caries Thyro-Mental Finger Breadths: 3 Mouth Opening Finger Breadths: 4 ROM/Head Extension: Full Lungs: Clear to Auscultation, Normal Respiratory Effort Cardiovascular: Regular Rate, Regular Rhythm - Allergies Allergies/Adverse Reactions: Allergies Allergy/AdvReac Type Severity Reaction Status Date / Time cephalexin Allergy Hives Verified 01/04/21 11:38 Sulfa (Sulfonamide Allergy Hives Verified 01/04/21 11:38 Antibiotics) doxycycline AdvReac Nausea and Verified 01/04/21 11:38 Vomiting - Blood Blood Available: No - Anesthesia Plan Free Text/Narrative:: labs pending , albuterol puffs per kelsie- pt smokes 1 pack every 3 days, last smoke last night before midnight - Acknowledgements Anesthesia Type Planned: MAC Pt an Appropriate Candidate for the Planned Anesthesia: Yes Alternatives and Risks of Anesthesia Discussed w Pt/Guardian: Yes Pt/Guardian Understands and Agrees with Anesthesia Plan: Yes PreAnesthesia Questionnaire HEENT History: Reports: Hard of Hearing Cardiovascular History: Reports: Other (See Below) Other Cardiovascular History: tachycardia Respiratory History: Reports: Other (See Below) Other Respiratory History: lung nodule Gastrointestinal History: Reports: Chronic Constipation, GERD Other Gastrointestinal History: "fatty liver" Other Genitourinary History: "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" [employer] 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: Musculoskeletal History: Reports: Back Pain, Chronic Neurological History: Reports: None Psychiatric History: Reports: Addiction, Anxiety, Depression Endocrine/Metabolic History: Reports: None Hematologic History: Reports: None Immunologic History: Reports: None Oncologic (Cancer) History: Reports: None Dermatologic History: Reports: None - Infectious Disease History Infectious Disease History: Reports: None - Past Surgical History Head Surgeries/Procedures: Reports: None HEENT Surgical History: Reports: Adenoidectomy, Tonsillectomy Cardiovascular Surgical History: Reports: None Respiratory Surgical History: Reports: None Female Surgical History: Reports: Section Male Surgical History: Reports: None Endocrine Surgical History: Reports: None Neurological Surgical History: Reports: None Musculoskeletal Surgical History: Reports: ORIF Oncologic Surgical History: Reports: None Dermatological Surgical History: Reports: None - SUBSTANCE USE Tobacco Use Status *Q: Current Every Day Tobacco User Days Per Week of Alcohol Use: 7 Number of Drinks Per Day: 8 Total Drinks Per Week: 56 Recreational Drug Use History: No - HOME MEDS Home Medications: Home Meds Furosemide [Lasix] 20 mg PO DAILY #30 tab 10/31/20 [Rx] Metoprolol Succinate 50 mg PO DAILY 10/31/20 [History] Ascorbic Acid [Vitamin C] 1,000 mg PO DAILY 01/03/21 [History] Ferrous Sulfate [Iron] 325 mg PO ASDIRECTED 01/03/21 [History] Multivitamin 1 tab PO DAILY 01/03/21 [History] Potassium Gluconate [Potassium] 99 mg PO DAILY 01/03/21 [History] Zinc 50 gm PO DAILY 01/03/21 [History] - CURRENT (IN HOUSE) MEDS Current Meds: Current Medications Lactated Ringer's (Ringers, Lactated) 1,000 mls @ 125 mls/hr IV ASDIRECTED KENNEDY Stop: 01/04/21 23:00 Lidocaine/Sodium Bicarbonate (Lidocaine 1%/Sod Bicarbonate In Ns 8.4% 1 Ml Syringe) 0.25 ml IDERM ONETIME PRN PRN Reason: Prior to IV Start Stop: 01/04/21 18:00 Sodium Chloride (Sodium Chloride 0.9% 10 Ml Syringe) 10 ml FLUSH ASDIRECTED PRN PRN Reason: Keep Vein Open Stop: 01/04/21 18:00
[2021-01-04] MEDS ORDERED: Ondansetron 4 MG/2 ML SDV ONE (12:05)
[2021-01-04] MEDS ORDERED: Dexamethasone 4 MG/ML 5 ML MDV ONE (12:05)
[2021-01-04] MEDS ORDERED: Propofol 200 MG/20 ML SDV ONE (12:05)
[2021-01-04] MEDS ORDERED: Midazolam 1 MG/ML 2 ML SDV ONE (12:05)
[2021-01-04] MEDS ORDERED: fentaNYL 100 MCG/2 ML SDV ONE (12:05)
[2021-01-04] MEDS ORDERED: Lactated Ringers 1,000 ML ONE (12:06)
[2021-01-04] MEDS ORDERED: Potassium Chloride 10 MEQ in Premix Bag 1 BAG IV SCH (12:45)
[2021-01-04] MEDS ORDERED: ePHEDrine 50 MG/ML SDV IVPUSH PRN (13:07)
[2021-01-04] MEDS ORDERED: Midazolam 1 MG/ML 2 ML SDV IVPUSH PRN (13:07)
[2021-01-04] MEDS ORDERED: HYDROmorphone 0.5 MG/0.5 ML Syringe IVPUSH PRN (13:07)
[2021-01-04] MEDS ORDERED: Ondansetron 4 MG/2 ML SDV IVPUSH PRN (13:07)
[2021-01-04] MEDS ORDERED: Potassium Chloride 20 MEQ Tab.ER PO ONE (13:58)
--- NOTE | 2021-01-04 14:09 | PCM.OPNOTE ---
- General Post-Op/Procedure Note Date of Surgery/Procedure: 01/04/21 Operative Procedure(s): EGD and colonoscopy Findings: 1. Hiatal hernia 2. Esophagitis with irregular z-line 3. Bile reflux 4. Hemorrhagic gastritis 5. Duodenitis 6. Diverticulosis 7. Colon polyps 8. Internal hemorrhoids Pre Op Diagnosis: Anemia, thrombocytopenia, Concern for varices, rectal bleeding Post-Op Diagnosis: same Anesthesia Technique: MAC Primary Surgeon: Guillermina Cook Anesthesia Provider: Valerie Maxwell Pathology: 1. Duodenal biopsies 2. Gastric antrum biopsies 3. Z-line biopsies 4. Descending colon polyp 5. Sigmoid colon polyp x2 Fluid Replacement, Intraop: 700 Complications: none apparent Condition: Good
--- NOTE | 2021-01-04 14:11 | PCM48HPAN ---
Post Anesthesia Note - EVALUATION WITHIN 48HRS OF ANESTHETIC Vital Signs in Normal Range: Yes Patient Participated in Evaluation: Yes Respiratory Function Stable: Yes Airway Patent: Yes Cardiovascular Function Stable: Yes Hydration Status Stable: Yes Pain Control Satisfactory: Yes Nausea and Vomiting Control Satisfactory: Yes Mental Status Recovered: Yes Vital Signs: Last Vital Signs Temp 36.8 C 01/04/21 14:00 Pulse 63 01/04/21 14:00 Resp 16 01/04/21 14:00 BP 121/66 01/04/21 14:00 Pulse Ox 96 01/04/21 14:00
--- NOTE | 2021-01-04 14:12 | PCM.PRNOTE ---
- Free Text/Narrative Note: Operative Report Date of Procedure: January 04, 2021 Pre Op Diagnosis: anemia, thrombocytopenia, rectal bleeding, concern for varices Post-Op Diagnosis: same Operative Procedures: 1. EGD with biopsy 2. Colonoscopy to the cecum with polypectomy Primary Surgeon: Guillermina Cook MD Anesthesia Provider: Valerie Maxwell CRNA Anesthesia Technique: MAC IV Fluid Replacement, Intraop: 700cc crystalloid Output, Urine Amount: 0cc EBL in mLs: 0 cc Findings: 1. Hiatal hernia 2. Esophagitis with irregular z-line 3. Bile reflux 4. Hemorrhagic gastritis 5. Duodenitis 6. Diverticulosis 7. Colon polyps 8. Internal hemorrhoids Specimens: 1. Duodenal biopsies 2. Gastric antrum biopsies 3. Z-line biopsies 4. Descending colon polyp 5. Sigmoid colon polyp x2 Drain/Tubes: None Indication: The patient is a 55-year-old lady who presented to the clinic with findings of anemia, thrombocytopenia, and concern for varices. The patient reported symptoms of intermittent rectal bleeding. The patient was consented for a diagnostic EGD and colonoscopy. Risks of bleeding, and perforation were discussed, and the pa tient agreed to the risks and wished to proceed. Description of the procedure: The patient was taken back to the endoscopy suite, and placed in the left lateral decubitus position. A bite block was placed. The patient was sedated with MAC anesthesia. The Olympus video endoscope was inserted into the oropharynx and guided under direct vision into the esophagus, stomach, and duodenum. The duodenal bulb and second portion of the duodenum were remarkable for erythema and friability consistent with duodenitis. Biopsies were taken with a cold biopsy forceps. The gastric antrum was inspected and cold biopsy forceps were used to take tissue samples for H. pylori. There was diffuse erythema and adherent blood consistent with hemorrhagic gastritis. The scope was withdrawn to the stomach and retroflexed. There was pooled bilious fluid in the upper gastrointestinal tract. No erosions or ulcers were noted. The scope was withdrawn to the esophagus. A this point we noted a hiatal hernia. There was patchy linear erythema in the distal esophagus consistent with gastritis and the Z-line was irregular. The z-line was biopsied in four quadrants with a cold biopsy forceps. The endoscope was then withdrawn Next, anorectal examination was performed. No lesions, masses or hemorrhoids were noted externally or on palpation. The scope was placed into the rectum and advanced to cecum. Upon reaching the cecum, and the patients cecum was entered. There was moderate tortuosity of the colon. The ileocecal valve was well visualized and the appendiceal orifice identified. At this point, the scope was slowly withdrawn, paying attention to the mucosa. The patient had a good bowel prep. A descending and two sigmoid colon polyps were noted, 3-5mm each. These were removed with a cold biopsy forceps. In the rectum, scope was retroflexed and some prominent internal hemorrhoidal tissue was noted. The scope was placed back in the lumen and excess air was aspirated. The scope was removed. The patient tolerated the procedure very well. Complications: None apparent Condition: The patient was transported to PACU in stable condition. Guillermina Cook MD General Surgery
[2021-01-04 15:24] VITALS: BP 114/21; PULSE 78
== END 2021-01-04 15:23 | disposition home or self-care (01) ==
LOC: JD.SDS 10:58
PROVIDERS: ATTEND Surgery
DX: K63.5 Polyp of colon (principal); D64.9 Anemia, unspecified; K44.9 Diaphragmatic hernia without obstruction or gangrene; K20.90 Esophagitis, unspecified without bleeding; K22.8 Other specified diseases of esophagus; K29.91 Gastroduodenitis, unspecified, with bleeding; K64.8 Other hemorrhoids; K57.30 Diverticulosis of large intestine without perforation or abscess without bleeding; F17.210 Nicotine dependence, cigarettes, uncomplicated; D69.6 Thrombocytopenia, unspecified; Z79.899 Other long term (current) drug therapy; Z88.8 Allergy status to other drugs, medicaments and biological substances; Z88.2 Allergy status to sulfonamides; Z98.890 Other specified postprocedural states
CPT/HCPCS: 36415; 43239; 45380; 80053; 85027; 85610; A9270; J1100; J2250; J2405; J2704; J3010; J3480; J7120; 00813

== ENCOUNTER 2021-12-02 00:19 | Emergency (ER) | payer MEDICAID, OTHER, SELFPAY ==
[2021-12-02] MEDS ORDERED: Sodium Chloride 0.9% 10 ML Syringe FLUSH PRN (01:40)
[2021-12-02] MEDS ORDERED: Sodium Chloride 0.9% 1,000 ML IV SCH (01:45)
[2021-12-02 02:21] LABS: ESTIMATED GFR 74 mL/min (>60)
[2021-12-02] MEDS ORDERED: Pantoprazole 40 MG Vial IVPUSH ONE (02:29)
[2021-12-02 05:10] VITALS: BP 99/55; PULSE 71
== END 2021-12-02 06:28 ==
LOC: JD.ED 00:19
DX: K70.31 Alcoholic cirrhosis of liver with ascites (principal); K92.1 Melena; F10.220 Alcohol dependence with intoxication, uncomplicated; D69.6 Thrombocytopenia, unspecified; E87.1 Hypo-osmolality and hyponatremia; E87.6 Hypokalemia; K21.9 Gastro-esophageal reflux disease without esophagitis; F17.210 Nicotine dependence, cigarettes, uncomplicated; Z88.1 Allergy status to other antibiotic agents; Z88.2 Allergy status to sulfonamides; Z79.899 Other long term (current) drug therapy; Y90.0 Blood alcohol level of less than 20 mg/100 ml
CPT/HCPCS: 36415; 71045; 73502; 80053; 80307; 81001; 82140; 83690; 83735; 84484; 85025; 85610; 85730; 86140; 86850; 86870; 86880; 86900; 86901; 93005; 96361; 96374; 99285; C9113; J3490; J7030; 86922; 93010